=== PATIENT | male | born 1965 | race Caucasian/White ===

== ENCOUNTER 2018-12-04 21:17 | Emergency (ER) | payer OTHER ==
[~2018-12-04] VITALS: Ht 190.5 cm; Wt 90.7 kg
--- NOTE | 2018-12-04 21:24 | NUR ---
Dr. Antonio VIDALES MD at bedside to evaluate pt.
[2018-12-04] MEDS ORDERED: XANAX PO (21:28)
[2018-12-04] MEDS ORDERED: AMBIEN PO (21:28)
[2018-12-04] MEDS ORDERED: VANCOMYCIN IV 1,000 MG in IV DEXTROSE 5% 250 ML IV ONE (21:45)
[2018-12-04] MEDS ORDERED: SULFAMETH/TRIMETH 800/160 MG TABLET PO ONE (21:45)
[2018-12-04] MEDS ORDERED: SULFAMETH/TRIMETH 800/160 MG TABLET ONE (21:53)
[2018-12-04] MEDS ORDERED: VANCOMYCIN IV 200 ML ONE (21:53)
[2018-12-04 21:54] LABS: BASOPHILS % (AUTO) 0.6 % (0.0-2.0); EOSINOPHILS % (AUTO) 0.5 % (0.0-7.0); HEMOGLOBIN 14.3 g/dL (12.5-16.3); LYMPHOCYTES % (AUTO) 19.4 % (20.5-51.5); MEAN CORPUSCULAR HEMOGLOBIN 30.5 uug (23.8-33.4); MEAN CORPUSCULAR HGB CONC 33 g/dL (32.5-36.3); MEAN CORPUSCULAR VOLUME 91.6 fL (73.0-96.2); MONOCYTES # (AUTO) 0.7 K/uL (2.0-10.0); MONOCYTES % (AUTO) 14.5 % (0.0-11.0); NEUTROPHILS # (AUTO) 3.2 K/uL (1.8-8.9); PLATELET COUNT (AUTO) 160 K/uL (152-348)
[2018-12-04 22:03] LABS: CREATININE 1.1 mg/dL (0.6-1.3); POTASSIUM 3.7 mmol/L (3.5-5.1)
[2018-12-04 22:09] LABS: BILIRUBIN,DIRECT 0.2 mg/dL (0.0-0.2); BILIRUBIN,TOTAL 0.8 mg/dL (0.2-1.0); TOTAL PROTEIN, SERUM 7.2 g/dL (6.4-8.2)
--- NOTE | 2018-12-04 23:02 | NUR ---
IV removed. Catheter intact and site benign. Pressure and 4x4 gauze applied to site. No bleeding noted.
--- NOTE | 2018-12-04 23:02 | NUR ---
Patient does not wish to proceed with medical care recommended by Dr. Alvarez. Patient given information related to possible complications, up to and including , which could occur as a result of leaving the hospital at this time. Patient verbalizes understanding of risks involved due to leaving against medical advice. Patient has signed AMA form. Patient discharged to home in stable conditon. Written and verbal after care instructions given. Patient verbalizes understanding of instructions.
--- NOTE | 2018-12-04 23:03 | NUR ---
Pt left ER with . Does not wish to be hospitalized at this time. States will follow up with his MD tomorrow am. No acute distress noted.
[2018-12-04 23:07] VITALS: BP 148/88
== END 2018-12-04 23:07 | disposition home or self-care (01) ==
LOC: ER 21:17
DX: L03.114 Cellulitis of left upper limb (principal); M71.122 Other infective bursitis, left elbow; Z79.899 Other long term (current) drug therapy
CPT/HCPCS: 36415; 71045; 73080; 80048; 80076; 85025; 85730; 87040 ×2; 96365; 99284; J3370; A4663